=== PATIENT | female | born 1970 | race Caucasian/White ===

== ENCOUNTER → 2022-10-24 10:27 | Outpatient (CLI) | payer OTHER, SELFPAY ==
--- NOTE | ~2022-10-24 | MM_ITS ---
EXAMINATION: MM screening [facility] BI w fern HISTORY: Screening mammogram TECHNIQUE: Craniocaudal and mediolateral oblique 3-D tomosynthesis images were obtained and synthetic 2-D images were generated. CAD analysis was submitted and interpreted. COMPARISON: 10/24/2016, 08/02/2015, 11/27/2012 BREAST PARENCHYMAL COMPOSITION: The breasts are almost entirely fatty. FINDINGS: Bilateral decrease in breast size is consistent with interval weight loss. RIGHT BREAST: There is a 5 mm mass in the anterior third of the lower inner right breast proximately 2 cm from the nipple. LEFT BREAST: No suspicious mass, calcification, or architectural distortion are identified to suggest malignancy. There has been no suspicious interval change. IMPRESSION: 1. Right breast mass. 2. Additional mammographic views and possible breast ultrasound are recommended. BI-RADS Category 0: Incomplete: Needs additional imaging evaluation. Reviewed, dictated and finalized at location A. IMPRESSION: 1. Right breast mass. 2. Additional mammographic views and possible breast ultrasound are recommended . BI-RADS Category 0: Incomplete: Needs additional imaging evaluation.
== END ==
PROVIDERS: PCP Nurse Practitioner; Visit Provider Nurse Practitioner
DX: Z12.31 Encounter for screening mammogram for malignant neoplasm of breast (principal); N63.14 Unspecified lump in the right breast, lower inner quadrant
CPT/HCPCS: 77063; 77067

== ENCOUNTER 2022-11-07 00:06 | Day surgery (SDC) | payer OTHER, SELFPAY ==
[2022-10-25 08:38] VITALS: BMI 22.9
--- NOTE | 2022-11-06 16:11 | PM.HPGS ---
History of Present Illness History of Present Illness Consent: Risks, benefits, and alternatives have been discussed and questions answered. Patient agrees to proceed with procedure. Chief complaint: neoplasm screening Narrative: Kaitlyn Barrett is a 52 year old female referred for colon cancer screening. Her maternal grandmother had colon cancer. Review of Systems Review of Systems: All systems reviewed & are unremarkable except as noted in HPI and below PMFSH Family History Family History (System 09/20/22 @ 08:53 by Laura Porras) Other Acute myocardial infarction Carcinoma of colon Social History Social History Smoking status: Never smoker Second hand tobacco smoke exposure: No Alcohol intake: current Drinks per week: 2 Alcohol use details: 2 drinks monthly Substance use: never Substance use type: does not use Lack of Transportation: No Lack of Food: Never True Current Housing: I Have Housing Concerned About Future Housing: No Difficulty Paying Gas/Electric Bills: No Difficulty Paying for Meds: No Currently Unemployed: No Education: Associate Degree Difficulty w/ Childcare or Family Care: No Living arrangements: with family Occupation/Education: unemployed Gender identity (if verbalized by the patient): Female Sexual Orientation (if Verbalized by the Patient): Straight or Heterosexual Spiritual care concerns: No Agree to blood products: Yes Meds Home Medications and Allergies Home Medications Medication Instructions Recorded Confirmed Type No Home Medications 09/18/22 10/25/22 History Allergies Allergy/AdvReac Type Severity Reaction Status Date / Time No Known Allergies Allergy Verified 11/07/22 11:43 Exam Const: General: alert Orientation/consciousness: patient oriented x3 Resp: Auscultation: clear to auscultation bilaterally Cardio: Rhythm: regular rhythm GI: GI Palp: Yes Soft to palpation and No Tenderness to palpation present (GI) Neuro: General: patient oriented x3 Assessment and Plan Assessment and plan (1) Colon cancer screening: Code(s): Z12.11 - Encounter for screening for malignant neoplasm of colon Status: Acute Assessment and Plan: Colonoscopy with possible biopsy or polypectomy or cautery or injection of substances.
[2022-11-07 11:44] VITALS: BP 123/75; PULSE 82; RESP 18; TEMP 36.3; O2SAT 100
[2022-11-07] MEDS: LACTATED RINGERS 1,000 ML 150 ML IV CONT (11:52)
--- NOTE | 2022-11-07 12:47 | P.PNAN_ITS ---
Anes - Initial Pre Proc Eval Procedure: Operation Date: 11/07/22 13:00 Proposed Procedures p Screening Colonoscopy - Gerald Shi MD Date/Time: 11/07/22 12:47 Surgeon: Gerald Shi MD Pre Op Diagnosis: neoplasm screening Patient Data Age: 52 Gender: F Height: 1.65 m Weight: 62 kg Last Vital Signs Temp 97.4 F L 11/07/22 11:44 Pulse 82 11/07/22 11:44 Resp 18 11/07/22 11:44 BP 123/75 11/07/22 11:44 Pulse Ox 100 11/07/22 11:44 O2 Del Method Room Air 11/07/22 11:44 Allergies Allergy/AdvReac Type Severity Reaction Status Date / Time No Known Allergies Allergy Verified 11/07/22 11:43 Home Medications Medication Instructions Recorded Confirmed Type No Home Medications 09/18/22 10/25/22 History Patient hx anesthesia problems: none Family hx anesthesia problems: none Results Review: All pre-operative results and documents have been reviewed as part of the pre- operative evaluation. [facility] Family History Family History (System 09/20/22 @ 08:53 by Laura Porras) Other Acute myocardial infarction Carcinoma of colon Social History Social History Smoking status: Never smoker Second hand tobacco smoke exposure: No Alcohol intake: current Drinks per week: 2 Alcohol use details: 2 drinks monthly Substance use: never Substance use type: does not use Lack of Transportation: No Lack of Food: Never True Current Housing: I Have Housing Concerned About Future Housing: No Difficulty Paying Gas/Electric Bills: No Difficulty Paying for Meds: No Currently Unemployed: No Education: Associate Degree Difficulty w/ Childcare or Family Care: No Living arrangements: with family Occupation/Education: unemployed Gender identity (if verbalized by the patient): Female Sexual Orientation (if Verbalized by the Patient): Straight or Heterosexual Spiritual care concerns: No Agree to blood products: Yes Anes - Eval Final PreProcedure Day of Procedure 11/07/22 12:47 Patient weight: normal Heart: regular rate and rhythm Lungs: clear to auscultation Airway: Mallampati scale class II Neurological: alert and oriented Last oral intake: >/= 8 hours ASA classification: I Emergent: no Anesthetic plan: proceed Anesthesia type and monitoring: general GIVS and standard monitoring Results Review: All pre-operative results and documents have been reviewed as part of the pre- operative evaluation. Informed Consent: The patient's anesthetic plan and its attendant risks and benefits were discussed with the patient/family/POA. Questions were solicited and answers provided to the satisfaction of the patient/family/POA.
[2022-11-07 13:19] VITALS: BP 113/71; PULSE 71; RESP 29; O2SAT 100
[2022-11-07 13:29] VITALS: BP 133/85; PULSE 71; RESP 17; O2SAT 100
[2022-11-07 13:39] VITALS: BP 132/87; PULSE 59; RESP 17; O2SAT 100
== END 2022-11-07 13:47 | disposition home or self-care (01) ==
PROVIDERS: PCP Nurse Practitioner; Visit Provider Internal Medicine Gastroenterology
PROC: 0DJD8ZZ Inspection of Lower Intestinal Tract, Via Natural or Artificial Opening Endoscopic (ICD-10-PCS; CPT 45378; principal; 2022-11-07 13:00)
DX: Z12.11 Encounter for screening for malignant neoplasm of colon (principal); K57.30 Diverticulosis of large intestine without perforation or abscess without bleeding
CPT/HCPCS: 45378; J2704; J7120

== ENCOUNTER → 2022-11-19 08:50 | Outpatient (CLI) | payer OTHER, SELFPAY ==
--- NOTE | ~2022-11-19 | MMUS_ITS ---
EXAMINATION: MM diagnostic kay RT w fern, US breast RT limited HISTORY: 5 mm mass reported in anterior third of lower inner right breast approximately 2 cm from nip ple on 10/24/2022 screening mammogram TECHNIQUE: Additional 3-D tomosynthesis images of the right breast were performed and synthetic 2-D i mages were generated. CAD analysis was submitted and interpreted. High resolution targeted right yeyo st ultrasound was performed. COMPARISON: 10/24/2022, 10/24/2016 bilateral screening mammogram examinations FINDINGS: MAMMOGRAPHIC FINDINGS: A circumscribed approximately 3 x 5 mm opacity is confirmed in the anterior lower inner right breast near the nipple. ULTRASOUND: In the subareolar area at the lower inner quadrant there is a mildly irregular comma-shaped hypoechoi c solid lesion measuring approximately 2.8 x 6 x 5 mm. The margins are not completely defined.. The i rregular incompletely circumscribed margins and the fact that this is new since 10/24/2016 raise suspi cion of possible small malignancy. Ultrasound-guided biopsy is recommended. IMPRESSION: 1. Suspicious 2.8 x 6 x 5 mm irregular mass in the lower inner quadrant subareolar area 2. Ultrasound-guided biopsy is recommended BI-RADS category 4, suspicious findings. Dr. Guillen telephoned the report and ultrasound-guided biopsy recommendation of lower inner quadrant lucas bareolar 6 mm mass on 11/19/2022 at 0947 hours to [facility]. Reviewed, dictated and finalized at location A. IMPRESSION: 1. Suspicious 2.8 x 6 x 5 mm irregular mass in the lower inner quadrant subareo lar area 2. Ultrasound-guided biopsy is recommended BI-RADS category 4, suspicious findings. Dr. Guillen telephoned the report and ultrasound-guided biopsy recommendation of l brandyer inner quadrant subareolar 6 mm mass on 11/19/2022 at 0947 hours to [facility]. IMPRESSION: 1. Suspicious 2.8 x 6 x 5 mm irregular mass in the lower inner quadrant subareo lar area 2. Ultrasound-guided biopsy is recommended BI-RADS category 4, suspicious findings. Dr. Guillen telephoned the report and ultrasound-guided biopsy recommendation of margarita atkins inner quadrant subareolar 6 mm mass on 11/19/2022 at 0947 hours to [facility].
== END ==
PROVIDERS: PCP Family Medicine; Visit Provider Nurse Practitioner
DX: N63.14 Unspecified lump in the right breast, lower inner quadrant (principal)
CPT/HCPCS: 76642; 77061; 77065; G0279

== ENCOUNTER → 2022-12-05 10:17 | Outpatient (CLI) | payer OTHER, SELFPAY ==
--- NOTE | ~2022-12-05 | DEXA_ITS ---
Bone Density Report Name: DAVE TALAMANTES Age: 52 Sex: Female Ethnicity: White Date of : 1970 Indication: postmenopausal; screening for osteoporosis; Referring Provider: Sylwia, Citlalli Study: Bone densitometry was performed. Exam Date: December 05, 2022 Accession number: [id number] Bone Density: Region BMD T-score Z-score Classification AP Spine (L1-L4) 0.916 -1.2 -0.2 Osteopenia Femoral Neck (Left) 0.705 -1.3 -0.3 Osteopenia Total Hip (Left) 0.854 -0.7 -0.1 Normal Femoral Neck (Right) 0.694 -1.4 -0.4 Osteopenia Total Hip (Right) 0.818 -1.0 -0.4 Normal Total Hip Mean 0.836 -0.9 -0.3 Normal World Health Organization criteria for BMD impression classify patients as: Normal (T-score at or above -1.0), Osteopenia (T-score between -1.0 and -2.5), or Osteoporosis (T-score at or below -2.5). 10-year Fracture Risk(1): Major Osteoporotic Fracture 5.8% Hip Fracture 0.4% Reported Risk Factors: [place] (), Neck BMD=0.694, BMI=23.4 (1) FRAX(R) Version 3.08. Fracture probability calculated for an untreated patient. Fracture probability may be lower if the patient has received treatment. Clinical Information Provided by Patient: Has used the following medications: Vitamin D Patient maximum height was 65 Menopause Age: 40 Drinks caffeinated beverages Onset of menses at age 11 Number of children 1 Impression: The patient has low bone mass, based on the Right Femoral Neck T-score. The patient has an estimated ten-year risk of hip fracture of 0.4% and an estimated ten-year risk of major fracture of 5.8%, based on the WHO FRAX algorithm. Discussion: BONE DENSITY IS LOW AT ONE OR MORE SKELETAL SITES. This patient's lowest T-score is low at one or more skeletal sites. It meets the World Health Organization's (WHO) criteria for ?low bone mass? (T-score between -1.0 and -2.5). The patient's 10-year risk of fracture as calculated by FRAX is less than the threshold where pharmacological therapy is recommended by the National Osteoporosis Foundation (NOF). However, all treatment decisions require clinical judgment and consideration of individual patient factors, including patient preferences, comorbidities, previous drug use, risk factors not captured in the FRAX model (e.g., frailty, falls, vitamin D deficiency, increased bone turnover, interval significant decline in bone density) and possible under or overestimation of fracture risk by FRAX. The patient should follow a healthful lifestyle (good nutrition with adequate calcium and vitamin D, and appropriate weight-bearing exercise). Follow-Up: Consider repeating this study in 2 to 3 years to reassess this patient's status, or sooner if there is some new clinical indication. Reported by: NICOLETTE on 12/05/2022 10:28:00 AM.
== END ==
PROVIDERS: PCP Nurse Practitioner; Visit Provider Nurse Practitioner
DX: Z78.0 Asymptomatic menopausal state (principal); M85.89 Other specified disorders of bone density and structure, multiple sites
CPT/HCPCS: 77080

== ENCOUNTER 2022-12-14 09:14 | Outpatient (CLI) | payer OTHER, SELFPAY ==
--- NOTE | ~2022-12-14 | MMUS_ITS ---
EXAMINATION: US breast biopsy RT w image, MM post biopsy invasive RT DATE: 12/14/2022 10:53 (accession [id number]), 12/14/2022 10:49 (accession [id number]) INDICATION: Indeterminate mass of the lower lower right breast at the 6:00 location. Ultrasound-guide d core biopsy is requested to evaluate for malignancy. TECHNIQUE AND FINDINGS: The risks and potential benefits of the procedure were discussed with the patient including bleeding and infection. A time out was performed. The skin of the right breast was prepared and draped in usua l sterile fashion. 1% lidocaine was used for superficial anesthesia. 1% lidocaine with epinephrine wa s used for deep anesthesia. A vacuum-assisted biopsy needle was advanced through to the outer edge of the region of interest from a medial approach utilizing sonographic guidance. A total of five tissue core samples were obtained through the lesion. A tissue marker clip was then placed placed. Postbiopsy mammogram demonstrates th e tissue marker to be positioned approximately 2 cm posterior to the visualized biopsy change. Hemost asis was achieved. A sterile bandage was applied. The patient tolerated procedure well. A small hematoma is seen at the biopsy site. The patient was gi bernard verbal instructions to return to the Emergency Department in the event of severe breast pain or r apid breast enlargement. A two view right breast mammogram was obtained to document tissue marker cli p placement. IMPRESSION: 1. Successful ultrasound-guided vacuum-assisted biopsy of right breast mass with tissue marker placem ent. Tissue marker approximately 2 cm posterior to the visualized biopsy change. Reviewed, dictated and finalized at location A. IMPRESSION: 1. Successful ultrasound-guided vacuum-assisted biopsy of right breast mass wit h tissue marker placement. Tissue marker approximately 2 cm posterior to the vi sualized biopsy change.
== END 2022-12-14 09:15 | disposition home or self-care (01) ==
PROVIDERS: PCP Family Medicine; Visit Provider Surgery
DX: R92.8 Other abnormal and inconclusive findings on diagnostic imaging of breast (principal); N63.10 Unspecified lump in the right breast, unspecified quadrant; D05.11 Intraductal carcinoma in situ of right breast
CPT/HCPCS: 19083; 88305; A4648